=== PATIENT | female | born 1965 | race Caucasian/White ===

== ENCOUNTER 2016-12-12 12:38 | Emergency (ER) | payer OTHER | END 2016-12-12 13:50 | disposition short-term general hospital (02) | LOC: ER 12:38 | DX: L03.113 Cellulitis of right upper limb (principal); J44.9 Chronic obstructive pulmonary disease, unspecified; F41.9 Anxiety disorder, unspecified; F17.210 Nicotine dependence, cigarettes, uncomplicated; Z79.899 Other long term (current) drug therapy | CPT/HCPCS: 73130; 90471; 90715; 96365; 96375; 99070; 99283-25 ==